=== PATIENT | male | born 1965 | race Two or more races ===

== ENCOUNTER 2025-01-30 12:47 | Emergency (ER) | payer OTHER, SELFPAY ==
[2025-01-30 12:51] VITALS: BP 138/82; PULSE 64; TEMP 36.7; O2SAT 95; BMI 32.1
--- NOTE | 2025-01-30 13:11 | XR_ITS ---
[facility] [place] [address] Patient Name: JUVENTINO MORENO MRN: [id number] date: 1965 Sex: M Assigned Patient Location: ER Current Patient Location: ER Accession/Order Number: [id number] Exam Date: 01/30/2025 13:58 Report Date: 01/30/2025 14:00 At the request of: GRACE KRAUSE Procedure: XR hand LT min 3V LEFT HAND - 3 views REASON FOR EXAM: Left hand pain with laceration to the dorsum of the distal second metacarpal. COMPARISON: None FINDINGS: 2 mm linear radiopaque foreign body involving the dorsum of the hand in the region of the second metacarpal. Soft tissue swelling is present. No acute bony process is seen. 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 Presumed remote post traumatic changes distal phalanx fourth digit. Additional radiopaque foreign body is seen involving the volar surface of the fifth digit at the level of the proximal phalanx measuring approximately 2 mm. XR/XR hand LT min 3V IMPRESSION: 2 MM LINEAR RADIOPAQUE FOREIGN BODY SEEN INVOLVING THE DORSUM OF THE HAND IN THE REGION OF THE SECOND METACARPAL. ADDITIONAL 2 MM RADIOPAQUE FOREIGN BODY IS SEEN ALONG THE VOLAR SURFACE OF THE FIFTH DIGIT AT THE LEVEL OF THE PROXIMAL PHALANX. NO ACUTE BONY PROCESS IS SEEN. Impression dictated by: Bert Warren Jr., D.O. 01/30/2025 2:00 PM Dictation Location: [place] [id number] Electronically authenticated by: [id number] Y Date: 01/30/2025 14:00
--- NOTE | 2025-01-30 13:15 | ED_ITS ---
HPI - Wound/Laceration General Chief Complaint: Wound/Laceration Stated Complaint: LACERATION [facility] Time Seen by Provider: 01/30/25 12:57 Source: patient Mode of arrival: walk-in History of Present Illness HPI narrative: Patient is a 59-year-old male who presents to the emergency department for evaluation of a laceration to the dorsum of the left hand. He states he was at work when he accidentally jammed his left hand into a machine. He is having difficulty extending his left index finger. Unknown last tetanus. Bleeding is well-controlled. No medications taken prior to arrival. No other associated injuries. Related Data Home Medications ?Medication ?Instructions ?Recorded ?Confirmed citalopram 10 mg tablet (Celexa) 10 mg PO DAILY 01/30/25 Previous Rx's ?Medication ?Instructions ?Recorded cephalexin 500 mg capsule 500 mg PO Q8H 10 days #30 ca ps 01/30/25 ketorolac 10 mg tablet 10 mg PO TID PRN pain #10 ta bs 01/30/25 Allergies Allergy/AdvReac Type Severity Reaction Status Date / Time No Known Drug Allergies Allergy Verified 01/30/25 12:51 Review of Systems ROS Constitutional Denies: fever or chills Ears, nose, mouth, and throat Denies: throat pain or nasal congestion Respiratory Denies: shortness of breath Gastrointestinal Denies: nausea or vomiting Musculoskeletal Reports: extremity pain; Denies: back pain or neck pain Integumentary/Breast Denies: rash Neurological Denies: numbness in extremities or weakness in extremities Hematologic/Lymphatic Denies: easy bruising or easy bleeding PFSH PFSH Social History Little interest or pleasure in doing things: not at all Feeling down, depressed, or hopeless: not at all Exam Narrative Exam Narrative: Gen.: Awake, alert, in no distress Head: Normocephalic, atraumatic ENT: Moist mucous membranes Respiratory: No respiratory distress Extremities: Small puncture wound to the dorsum of the left hand, no active bleeding. Experience pain with extension of the left index finger, mild soft tissue swelling noted. No large Laceration noted. No subcutaneous tissue exposure. Psych: Normal mood and affect Neuro: No focal neuro deficit Skin: Warm, dry Constitutional Vital Signs, click to edit/add: Last Vital Signs Temp 98.0 F 01/30/25 12:51 Pulse 64 01/30/25 12:51 Resp 16 01/30/25 12:51 BP 138/82 01/30/25 12:51 Pulse Ox 95 01/30/25 12:51 O2 Del Method Room Air 01/30/25 12:51 Course Vital Signs Vital signs: Vital Signs Temperature 98.0 F 01/30/25 12:51 Pulse Rate 64 01/30/25 12:51 Respiratory Rate 16 01/30/25 12:51 Blood Pressure 138/82 01/30/25 12:51 Pulse Oximetry 95 01/30/25 12:51 Oxygen Delivery Method Room Air 01/30/25 12:51 Temperature 98.0 F 01/30/25 12:51 Pulse Rate 64 01/30/25 12:51 Respiratory Rate 16 01/30/25 12:51 Blood Pressure 138/82 01/30/25 12:51 Pulse Oximetry 95 01/30/25 12:51 Oxygen Delivery Method Room Air 01/30/25 12:51 MDM - Wound/Laceration MDM Narrative Medical decision making narrative: X-rays show no evidence of bony abnormality however the patient is noted to have a small foreign body on the dorsum of the hand. Concern for extensor tendon injury to the left hand, patient placed in a splint with dressing. No indication for suture repair at this time. Follow-up with orthopedics and return to the emergency department if symptoms change or worsen. Occupational health referral given as well. Keflex, NSAIDs given for home. SHARED APC VISIT, PHYSICIAN ATTESTATION: [id number] I performed a substantive part of the MDM during the patient?s E/M visit. I personally evaluated and examined the patient. I personally made or approved the documented management plan and acknowledge its risk of complications. Medical Records Attestation: I reviewed the patient's medical records. Lab Data Attestation: I reviewed the patient's lab results. Imaging Data XR hand: Attestation: I have reviewed the pertinent imaging results. Radiologist's impression: ITS Impressions Hand X-Ray 01/30/25 13:11 IMPRESSION: 2 MM LINEAR RADIOPAQUE FOREIGN BODY SEEN INVOLVING THE DORSUM OF THE HAND IN THE REGION OF THE SECOND METACARPAL. ADDITIONAL 2 MM RADIOPAQUE FOREIGN BODY IS SEEN ALONG THE VOLAR SURFACE OF THE FIFTH DIGIT AT THE LEVEL OF THE PROXIMAL PHALANX. NO ACUTE BONY PROCESS IS SEEN. Impression dictated by: Bert Warren Jr., D.O. 01/30/2025 2:00 PM Dictation Location: [email or web address] Electronically authenticated by: [id number] Y Date: 01/30/2025 14:00 Discharge Plan Discharge Chief Complaint: Wound/Laceration Clinical Impression: Puncture wound of left hand, Injury of hand, extensor tendon, Foreign body in skin Patient Disposition: Home, Self-Care Time of Disposition Decision: 14:09 Condition: Good Prescriptions / Home Meds: New cephalexin 500 mg capsule 500 mg PO Q8H 10 Days Qty: 30 0RF ketorolac 10 mg tablet 10 mg PO TID PRN (Reason: pain) Qty: 10 0RF No Action citalopram [Celexa] 10 mg tablet 10 mg PO DAILY Print Language: Croatian Instructions: Puncture Wound (ED), Tendon Laceration (ED) Referrals: [facility] [Outside] - 1 week NAIN [facility]GIGS [Referring] - As soon as possible
[2025-01-30] MEDS: ADACEL DIPH,PERTUSS(ACELL),TET VAC/PF 0.5 ML ADULT SYRINGE IM (13:56)
== END 2025-01-30 14:24 | disposition home or self-care (01) ==
PROVIDERS: Emergency Provider Emergency Medicine; PCP Internal Medicine
DX: S66.892A Other injury of other specified muscles, fascia and tendons at wrist and hand level, left hand, initial encounter (principal); S61.442A Puncture wound with foreign body of left hand, initial encounter; X58.XXXA Exposure to other specified factors, initial encounter; Z23 Encounter for immunization
CPT/HCPCS: 29130; 73130; 90471; 90715; 99283